=== PATIENT | male | born 1965 | race Caucasian/White ===

== ENCOUNTER 2022-04-14 06:44 | Outpatient (CLI) | payer OTHER, SELFPAY ==
--- NOTE | 2022-04-14 08:47 | W.ANESCHARGE ---
Anesthesia Charges Start Date/Time Anesthesia Start Date: 04/14/22 Anesthesia Start Time: 07:38 Stop Date/Time Anesthesia Stop Date: 04/14/22 Anesthesia Stop Time: 08:45 Summary Emergency: No
--- NOTE | 2022-04-14 09:15 | W.ANESCHARGE ---
Anesthesia Charges Start Date/Time Anesthesia Start Date: 04/14/22 Anesthesia Start Time: 07:38 Stop Date/Time Anesthesia Stop Date: 04/14/22 Anesthesia Stop Time: 08:45 Summary Emergency: No
== END 2022-04-14 06:45 | disposition home or self-care (01) ==
LOC: OP CLINIC 06:45
PROVIDERS: PCP Family Medicine; Visit Provider Surgery
DX: Z12.11 Encounter for screening for malignant neoplasm of colon (principal); K63.5 Polyp of colon; K57.30 Diverticulosis of large intestine without perforation or abscess without bleeding
CPT/HCPCS: 45385; 811; 88305; J2704

== ENCOUNTER 2022-04-15 10:18 | Outpatient (CLI) | payer OTHER, SELFPAY ==
[2022-04-15 13:18] LABS: Albumin* 3.9 g/dL (3.3-5.0); Chloride* 108 mmol/L (96-114); Sodium* 137 mmol/L (135-149)
[2022-04-15 13:19] LABS: Potassium* 3.9 mmol/L (3.6-5.1)
[2022-04-15 13:21] LABS: Alanine Aminotransferase* 21 U/L (4-50); Alkaline Phosphatase* 75 U/L (40-150); Aspartate Amino Transferase* 26 U/L (12-35); Bilirubin Total* 0.7 mg/dL (0.1-1.5); Blood Urea Nitrogen* 10 mg/dL (7-30); Carbon Dioxide* 24 mmol/L (20-32); Creatinine* 0.8 mg/dL (0.5-1.5); Estimated Glomerular Filt Rate 103 ml/min; Glucose* 109 mg/dL (60-115); Total Protein* 6.3 g/dL (6.0-8.3); Uric Acid* 4.2 mg/dL (2.2-8.4)
[2022-04-15 13:22] LABS: Calcium* 8.6 mg/dL (8.4-10.6)
== END 2022-04-15 10:19 | disposition home or self-care (01) ==
PROVIDERS: PCP Family Medicine; Visit Provider Nurse Practitioner Family
DX: Z72.89 Other problems related to lifestyle (principal); M79.673 Pain in unspecified foot
CPT/HCPCS: 80053; 84550

== ENCOUNTER 2022-11-12 14:40 | Outpatient (CLI) | payer OTHER, SELFPAY | END 2022-11-12 14:41 | disposition home or self-care (01) | LOC: NFLDREF 11-20 09:19 | PROVIDERS: PCP Physician Assistant Medical; Referring Provider Physician Assistant Medical; Visit Provider Family Medicine | DX: Z00.00 Encounter for general adult medical examination without abnormal findings (principal); E03.9 Hypothyroidism, unspecified; Z13.6 Encounter for screening for cardiovascular disorders | CPT/HCPCS: 80061; 84443 ==

== ENCOUNTER 2023-06-04 11:36 | Outpatient (CLI) | payer OTHER, SELFPAY | END 2023-06-04 11:37 | disposition home or self-care (01) | LOC: FRMREF 11:37 | PROVIDERS: PCP Physician Assistant Medical; Visit Provider Physician Assistant Medical | DX: N40.0 Benign prostatic hyperplasia without lower urinary tract symptoms (principal); E03.9 Hypothyroidism, unspecified | CPT/HCPCS: 84153 ==

== ENCOUNTER 2024-02-01 09:59 | Outpatient (CLI) | payer OTHER, SELFPAY | END 2024-02-01 10:00 | disposition home or self-care (01) | PROVIDERS: PCP Family Medicine; Visit Provider Family Medicine | DX: E03.9 Hypothyroidism, unspecified (principal); N40.0 Benign prostatic hyperplasia without lower urinary tract symptoms; Z80.42 Family history of malignant neoplasm of prostate; Z12.5 Encounter for screening for malignant neoplasm of prostate; Z13.228 Encounter for screening for other metabolic disorders; Z13.220 Encounter for screening for lipoid disorders | CPT/HCPCS: 80053; 80061; 84443; G0103 ==

== ENCOUNTER 2025-05-21 09:00 | Outpatient (CLI) | payer OTHER, SELFPAY | END 2025-05-21 09:01 | disposition home or self-care (01) | LOC: NFLDREF 05-24 10:45 | PROVIDERS: PCP Family Medicine; Referring Provider Family Medicine; Visit Provider Family Medicine | DX: D64.9 Anemia, unspecified (principal); E03.9 Hypothyroidism, unspecified; Z12.5 Encounter for screening for malignant neoplasm of prostate; Z13.0 Encounter for screening for diseases of the blood and blood-forming organs and certain disorders involving the immune mechanism; Z13.6 Encounter for screening for cardiovascular disorders | CPT/HCPCS: 80053; 80061; 84443; G0103 ==

== ENCOUNTER 2025-05-29 10:39 | Outpatient (CLI) | payer OTHER, SELFPAY | END 2025-05-29 10:40 | disposition home or self-care (01) | LOC: FRMREF 10:39 | PROVIDERS: PCP Family Medicine; Visit Provider Family Medicine | DX: D64.9 Anemia, unspecified (principal); Z13.0 Encounter for screening for diseases of the blood and blood-forming organs and certain disorders involving the immune mechanism; Z13.1 Encounter for screening for diabetes mellitus | CPT/HCPCS: 83540; 83550 ==